=== PATIENT | female | born 1950 | race Caucasian/White ===

== ENCOUNTER 2017-07-21 13:58 | Outpatient (CLI) | payer OTHER ==
[~2017-07-21 13:58] MED LIST: ALBUTEROL SULFAT2 MG; COZAAR25 MG; PREDNISONE20 MG
== END 2017-07-21 14:11 | disposition home or self-care (01) ==
LOC: LAB 13:58
DX: A49.2 Hemophilus influenzae infection, unspecified site (principal)

== ENCOUNTER 2018-04-09 11:19 | Outpatient (CLI) | payer OTHER | END 2018-04-09 11:23 | disposition home or self-care (01) | LOC: RAD 11:19 | DX: M25.511 Pain in right shoulder (principal) ==

== ENCOUNTER 2021-02-25 23:25 | Emergency (ER) | payer OTHER ==
[~2021-02-25] VITALS: Ht 175.3 cm; Wt 79.4 kg
[2021-02-26] MEDS ORDERED: ASPIRIN81 MG PO (03:37)
[2021-02-26] MEDS ORDERED: ACETAMINOPHEN650 M2 PO (03:37)
== END 2021-02-26 04:10 | disposition home or self-care (01) ==
LOC: ER 23:25
DX: R51.9 Headache, unspecified (principal); R20.2 Paresthesia of skin; Z87.09 Personal history of other diseases of the respiratory system; I10 Essential (primary) hypertension; Z86.73 Personal history of transient ischemic attack (TIA), and cerebral infarction without residual deficits

== ENCOUNTER 2024-04-04 22:28 | Emergency (ER) | payer OTHER ==
[~2024-04-04] VITALS: Ht 162.6 cm; Wt 81.6 kg
[~2024-04-04 22:28] MED LIST changes: +ACETAMINOPHEN650 M2 PO; +ASPIRIN81 MG PO
[2024-04-05] MEDS ORDERED: 0.9 % SODIUM CHLORIDE 1,000 ML IV STA (00:43)
[2024-04-05] MEDS ORDERED: ONDANSETRON HCL 2 MG/ML VIAL IV STA (00:44)
[2024-04-05] MEDS ORDERED: FAMOtidine 10 MG/ML (4ML VIAL) IV PUSH STA (00:44)
[2024-04-05] MEDS ORDERED: HYOSCYAMINE SULFATE 0.125 MG TAB.SUBL SL ONE (00:45)
[2024-04-05] MEDS ORDERED: DIPHENOXYLATE HCL/ATROPINE 1 UDTAB TABLET PO STA (00:45)
[2024-04-05 01:04] LABS: HEMATOCRIT 40.9 % (36.0-45.00); HEMOGLOBIN 13.8 g/dL (12.0-15.00); MEAN CELL VOLUME 78.4 fL (80.00-100.00); MEAN CORPUSCULAR HEMOGLOBIN 26.5 pg (27.00-32.0); MEAN CORPUSCULAR HGB CONC 33.7 g/dl (32.0-36.0); PLATELET COUNT 216 K/uL (150-450); RED BLOOD COUNT 5.21 M/uL (4.00-6.00); RED CELL DISTRIBUTION WIDTH 14.4 % (11.5-14.5)
[2024-04-05 01:53] LABS: CALCIUM 9.3 mg/dL (8.5-10.1); CREATININE SERUM 0.62 mg/dL (0.55-1.02); GFR 93.84; POTASSIUM 3.54 mEq/L (3.5-5.1)
[2024-04-05] MEDS ORDERED: KETOROLAC TROMETHAMINE 30 MG VIAL IV STA (03:11)
[2024-04-05 03:46] VITALS: BP 11/75; O2SAT 98
== END 2024-04-05 04:27 | disposition home or self-care (01) ==
LOC: ER 22:28
DX: K52.89 Other specified noninfective gastroenteritis and colitis (principal); R14.1 Gas pain; R14.2 Eructation; R14.3 Flatulence